=== PATIENT | female | born 1960 | race Caucasian/White ===

== ENCOUNTER 2016-07-14 14:20 | Emergency (ER) | payer MEDICARE ==
[~2016-07-14] VITALS: Ht 170.2 cm; Wt 86.2 kg
[~2016-07-14 14:20] MED LIST: CLON0.5T4 PO; LACO100T2 PO; LAMO150T PO; LOPE2CAP40 PO; METO50TA7 PO
[2016-07-14 15:05] LABS: *BILIRUBIN,URIN NEGATIVE (NEGATIVE); *BLOOD, URINE Trace-intact (NEGATIVE); *COLOR,URINE YELLOW (YELLOW); *KETONES,URINE NEGATIVE (NEGATIVE); *PROTEIN,URINE NEGATIVE (NEGATIVE); *UROBILINOGEN,URINE 0.2 E.U./dl (NORMAL); LEUKOCYTE ESTERASE ,URINE 1+ (NEGATIVE); NITRITE, URINE NEGATIVE (NEGATIVE); PH,URINE 7.5 (5.0-8.0); UGLUCOSE NEGATIVE (NEGATIVE)
--- NOTE | 2016-07-14 15:05 | NUR ---
Patient discharged to home in stable conditon. Written and verbal after care instructions given to patient. Patient verbalizes understanding of instructions.
[2016-07-14 15:09] LABS: *CLARITY,URINE SLIGHTLY CLOUDY (CLEAR)
[2016-07-14 15:10] LABS: BACTERIA,URINE FEW /HPF (NONE SEEN); RBC,URINE 0-3 /HPF (0-3); SQUAMOUS EPITHELIAL CELL,UR FEW /HPF (NONE SEEN); WBC,URINE 20-50 /HPF (0-3)
== END 2016-07-14 15:09 | disposition home or self-care (01) ==
LOC: ER 14:20
DX: N39.0 Urinary tract infection, site not specified (principal); I10 Essential (primary) hypertension; F41.9 Anxiety disorder, unspecified; F32.9 Major depressive disorder, single episode, unspecified; C64.1 Malignant neoplasm of right kidney, except renal pelvis
CPT/HCPCS: 87077; 87086; A4663

== ENCOUNTER 2016-07-23 15:26 | Emergency (ER) | payer MEDICARE ==
[~2016-07-23] VITALS: Ht 170.2 cm; Wt 86.2 kg
[2016-07-23 16:23] LABS: *BILIRUBIN,URIN NEGATIVE (NEGATIVE); *BLOOD, URINE NEGATIVE (NEGATIVE); *CLARITY,URINE CLEAR (CLEAR); *COLOR,URINE YELLOW (YELLOW); *KETONES,URINE NEGATIVE (NEGATIVE); *PROTEIN,URINE NEGATIVE (NEGATIVE); *UROBILINOGEN,URINE 0.2 E.U./dl (NORMAL); LEUKOCYTE ESTERASE ,URINE NEGATIVE (NEGATIVE); NITRITE, URINE NEGATIVE (NEGATIVE); PH,URINE 6.5 (5.0-8.0); UGLUCOSE NEGATIVE (NEGATIVE)
[2016-07-23 16:30] LABS: MUCUS,URINE FEW /LPF (0-FEW); SQUAMOUS EPITHELIAL CELL,UR FEW /HPF (NONE SEEN); WBC,URINE 0-3 /HPF (0-3)
--- NOTE | 2016-07-23 16:39 | NUR ---
mse completed, pt d/c'd home, aci/rx x2 given. pt ambulated w/o diff/took all belongings.
[2016-07-23 16:40] VITALS: BP 141/79
== END 2016-07-23 16:40 | disposition home or self-care (01) ==
LOC: ER 15:45
DX: N39.0 Urinary tract infection, site not specified (principal); I10 Essential (primary) hypertension; F32.9 Major depressive disorder, single episode, unspecified; F41.9 Anxiety disorder, unspecified; C64.1 Malignant neoplasm of right kidney, except renal pelvis
CPT/HCPCS: 87086; A4663

== ENCOUNTER 2017-04-06 15:09 | Emergency (ER) | payer MEDICARE ==
--- NOTE | 2017-04-06 15:30 | NUR ---
PT NOT IN WAITING ROOM WHEN CALLED FOR TRIAGE.
== END 2017-04-06 15:10 | disposition left against medical advice (07) ==
LOC: ER 15:10
DX: Z53.21 Procedure and treatment not carried out due to patient leaving prior to being seen by health care provider (principal)

== ENCOUNTER 2017-06-05 12:57 | Emergency (ER) | payer MEDICARE ==
[~2017-06-05] VITALS: Ht 170.2 cm; Wt 86.2 kg
[2017-06-05 13:37] LABS: *BILIRUBIN,URIN NEGATIVE (NEGATIVE); *BLOOD, URINE NEGATIVE (NEGATIVE); *CLARITY,URINE CLEAR (CLEAR); *COLOR,URINE YELLOW (YELLOW); *KETONES,URINE NEGATIVE (NEGATIVE); *PROTEIN,URINE NEGATIVE (NEGATIVE); *URINE HCG, QUAL NEGATIVE (NEGATIVE); *UROBILINOGEN,URINE 0.2 E.U./dl (NORMAL); LEUKOCYTE ESTERASE ,URINE NEGATIVE (NEGATIVE); NITRITE, URINE NEGATIVE (NEGATIVE); UGLUCOSE NEGATIVE (NEGATIVE)
[2017-06-05 13:45] LABS: BACTERIA,URINE NONE SEEN /HPF (NONE SEEN); RBC,URINE 0-3 /HPF (0-3); SQUAMOUS EPITHELIAL CELL,UR FEW /HPF (NONE SEEN); WBC,URINE 0-3 /HPF (0-3)
--- NOTE | 2017-06-05 14:01 | NUR ---
Patient discharged to home in stable conditon. Written and verbal after care instructions given. Patient verbalizes understanding of instructions.
== END 2017-06-05 14:02 | disposition home or self-care (01) ==
LOC: ER 13:00
DX: N39.0 Urinary tract infection, site not specified (principal); G40.909 Epilepsy, unspecified, not intractable, without status epilepticus; I10 Essential (primary) hypertension
CPT/HCPCS: 84703; 87086; A4663

== ENCOUNTER 2017-12-24 16:06 | Emergency (ER) | payer MEDICARE ==
[~2017-12-24] VITALS: Ht 170.2 cm; Wt 83.9 kg
[~2017-12-24 16:06] MED LIST changes: +CLON0.5T12 PO; -CLON0.5T4 PO
--- NOTE | 2017-12-24 16:38 | NUR ---
urine sent, pt awaiting for results.
[2017-12-24 16:41] LABS: *BILIRUBIN,URIN NEGATIVE (NEGATIVE); *BLOOD, URINE NEGATIVE (NEGATIVE); *CLARITY,URINE CLEAR (CLEAR); *COLOR,URINE YELLOW (YELLOW); *KETONES,URINE NEGATIVE (NEGATIVE); *PROTEIN,URINE NEGATIVE (NEGATIVE); *UROBILINOGEN,URINE 0.2 E.U./dl (NORMAL); LEUKOCYTE ESTERASE ,URINE TRACE (NEGATIVE); NITRITE, URINE NEGATIVE (NEGATIVE); UGLUCOSE NEGATIVE (NEGATIVE)
[2017-12-24 16:50] LABS: BACTERIA,URINE FEW /HPF (NONE SEEN); SQUAMOUS EPITHELIAL CELL,UR FEW /HPF (NONE SEEN)
[2017-12-24 17:04] VITALS: BP 122/85
--- NOTE | 2017-12-24 17:04 | NUR ---
Patient discharged to home in stable conditon. Written and verbal after care instructions given. Patient verbalizes understanding of instructions. Pt discharged with prescription for oral antibiotic. All belongings taken with pt at time of dc.
== END 2017-12-24 17:00 | disposition home or self-care (01) ==
LOC: ER 16:07
DX: N39.0 Urinary tract infection, site not specified (principal); I10 Essential (primary) hypertension
CPT/HCPCS: 81001; 87077; 87086; 87186; 99284; A4663

== ENCOUNTER 2018-01-15 17:42 | Emergency (ER) | payer MEDICARE ==
[~2018-01-15] VITALS: Ht 170.2 cm; Wt 83.9 kg
--- NOTE | 2018-01-15 18:20 | NUR ---
Pt is sitting in bed comfortably. No s/s of respiratory distress noted. All safety needs are met. Will continue to monitor.
[2018-01-15 18:31] LABS: *BILIRUBIN,URIN NEGATIVE (NEGATIVE); *BLOOD, URINE Trace-intact (NEGATIVE); *CLARITY,URINE CLEAR (CLEAR); *COLOR,URINE YELLOW (YELLOW); *KETONES,URINE NEGATIVE (NEGATIVE); *PROTEIN,URINE NEGATIVE (NEGATIVE); *UROBILINOGEN,URINE 0.2 E.U./dl (NORMAL); LEUKOCYTE ESTERASE ,URINE NEGATIVE (NEGATIVE); NITRITE, URINE NEGATIVE (NEGATIVE); UGLUCOSE NEGATIVE (NEGATIVE)
[2018-01-15 18:33] LABS: BACTERIA,URINE NONE SEEN /HPF (NONE SEEN); RBC,URINE 0-3 /HPF (0-3); SQUAMOUS EPITHELIAL CELL,UR FEW /HPF (NONE SEEN); WBC,URINE 0-3 /HPF (0-3)
[2018-01-15 18:58] VITALS: BP 108/65
== END 2018-01-15 18:15 | disposition home or self-care (01) ==
LOC: ER 17:47
DX: N39.0 Urinary tract infection, site not specified (principal); R19.7 Diarrhea, unspecified; I10 Essential (primary) hypertension
CPT/HCPCS: 87077; 87086; A4663

== ENCOUNTER 2018-06-03 16:12 | Emergency (ER) | payer MEDICARE ==
[~2018-06-03] VITALS: Ht 170.2 cm; Wt 83.9 kg
--- NOTE | 2018-06-03 16:41 | NUR ---
Patient discharged to home in stable conditon. Written and verbal after care instructions given to patient. Patient verbalizes understanding of instructions.
[2018-06-03 16:44] LABS: *BILIRUBIN,URIN NEGATIVE (NEGATIVE); *BLOOD, URINE Trace-intact (NEGATIVE); *COLOR,URINE YELLOW (YELLOW); *KETONES,URINE NEGATIVE (NEGATIVE); *UROBILINOGEN,URINE 0.2 E.U./dl (NORMAL); LEUKOCYTE ESTERASE ,URINE 1+ (NEGATIVE); NITRITE, URINE NEGATIVE (NEGATIVE); PH,URINE 6.5 (5.0-8.0); UGLUCOSE NEGATIVE (NEGATIVE)
[2018-06-03 16:49] LABS: *CLARITY,URINE SLIGHTLY HAZY (CLEAR)
[2018-06-03 16:51] LABS: BACTERIA,URINE FEW /HPF (NONE SEEN); MUCUS,URINE FEW /LPF (0-FEW); SQUAMOUS EPITHELIAL CELL,UR FEW /HPF (NONE SEEN); WBC,URINE 20-50 /HPF (0-3)
== END 2018-06-03 16:43 | disposition home or self-care (01) ==
LOC: ER 16:14
DX: N39.0 Urinary tract infection, site not specified (principal); I10 Essential (primary) hypertension; Z79.899 Other long term (current) drug therapy
CPT/HCPCS: 87077; 87086; A4663

== ENCOUNTER 2020-01-02 19:00 | Emergency (ER) | payer MEDICARE ==
[~2020-01-02] VITALS: Ht 170.2 cm; Wt 90.7 kg
[~2020-01-02 19:00] MED LIST changes: -CLON0.5T12 PO; +CLON0.5T4 PO; -LAMO150T PO; +LAMO150T6 PO
[2020-01-02 19:52] LABS: *BILIRUBIN,URIN NEGATIVE (NEGATIVE); *BLOOD, URINE 1+ (NEGATIVE); *CLARITY,URINE SLIGHTLY CLOUDY (CLEAR); *COLOR,URINE YELLOW (YELLOW); *KETONES,URINE NEGATIVE (NEGATIVE); *UROBILINOGEN,URINE 0.2 E.U./dl (NORMAL); LEUKOCYTE ESTERASE ,URINE 2+ (NEGATIVE); NITRITE, URINE NEGATIVE (NEGATIVE); UGLUCOSE NEGATIVE (NEGATIVE)
[2020-01-02 20:10] VITALS: BP 147/85
--- NOTE | 2020-01-02 20:10 | NUR ---
Patient discharged to home in stable condition. Written and verbal after care instructions given. Patient verbalizes understanding of instructions. Stressed follow up or return to ER for worsening s/s.
[2020-01-02 20:17] LABS: BACTERIA,URINE FEW /HPF (NONE SEEN); SQUAMOUS EPITHELIAL CELL,UR FEW /HPF (NONE SEEN)
== END 2020-01-02 20:11 | disposition home or self-care (01) ==
LOC: ER 19:00
DX: N39.0 Urinary tract infection, site not specified (principal); G40.909 Epilepsy, unspecified, not intractable, without status epilepticus; Z79.899 Other long term (current) drug therapy; K58.9 Irritable bowel syndrome, unspecified; I10 Essential (primary) hypertension; F32.9 Major depressive disorder, single episode, unspecified; F41.9 Anxiety disorder, unspecified; Z82.49 Family history of ischemic heart disease and other diseases of the circulatory system; Z85.528 Personal history of other malignant neoplasm of kidney
CPT/HCPCS: 87077; 87086; A4663

== ENCOUNTER 2023-07-12 15:10 | Emergency (ER) | payer MEDICARE ==
[~2023-07-12] VITALS: Ht 170.2 cm; Wt 90.7 kg
[2023-07-12 15:48] LABS: *BILIRUBIN,URIN NEGATIVE (NEGATIVE); *BLOOD, URINE 1+ (NEGATIVE); *CLARITY,URINE CLEAR (CLEAR); *COLOR,URINE YELLOW (YELLOW); *KETONES,URINE NEGATIVE (NEGATIVE); *PROTEIN,URINE NEGATIVE (NEGATIVE); *UROBILINOGEN,URINE 0.2 E.U./dl (NORMAL); LEUKOCYTE ESTERASE ,URINE 1+ (NEGATIVE); NITRITE, URINE NEGATIVE (NEGATIVE); UGLUCOSE NEGATIVE (NEGATIVE)
[2023-07-12 16:21] LABS: BACTERIA,URINE MODERATE /HPF (NONE SEEN); SQUAMOUS EPITHELIAL CELL,UR FEW /HPF (NONE SEEN); WBC,URINE 50-80 /HPF (0-3)
[2023-07-12] MEDS ORDERED: CEphaleXIN 500 MG CAPSULE ONE (16:50)
[2023-07-12] MEDS ORDERED: PHENAZOPYRIDINE HCL 100 MG TABLET ONE (16:50)
[2023-07-12] MEDS ORDERED: CIPR-263 PO (16:56)
[2023-07-12] MEDS ORDERED: CIPROFLOXACIN HCL 250 MG TABLET ONE (17:00)
[2023-07-12] MEDS: CIPROFLOXACIN HCL 250 MG TABLET PO ONE (17:03)
[2023-07-12] MEDS: PHENAZOPYRIDINE HCL 100 MG TABLET PO ONE (17:13)
[2023-07-12] MEDS: CEphaleXIN 500 MG CAPSULE PO ONE (17:14)
[2023-07-12 17:15] VITALS: BP 145/84; TEMP 98.5; O2SAT 100
== END 2023-07-12 17:16 | disposition home or self-care (01) ==
LOC: ER 15:19
DX: N39.0 Urinary tract infection, site not specified (principal); G40.909 Epilepsy, unspecified, not intractable, without status epilepticus; F32.A Depression, unspecified; F41.9 Anxiety disorder, unspecified; Z98.890 Other specified postprocedural states; Z79.899 Other long term (current) drug therapy; Z88.1 Allergy status to other antibiotic agents
CPT/HCPCS: A4606; A4663

== ENCOUNTER 2023-12-30 14:53 | Emergency (ER) | payer MEDICARE ==
[~2023-12-30] VITALS: Ht 170.2 cm; Wt 86.2 kg
[~2023-12-30 14:53] MED LIST changes: +CIPR-263 PO
[2023-12-30 14:56] VITALS: O2SAT 100
== END 2023-12-30 15:33 | disposition left against medical advice (07) ==
LOC: ER 14:53
DX: R22.40 Localized swelling, mass and lump, unspecified lower limb (principal); Z53.21 Procedure and treatment not carried out due to patient leaving prior to being seen by health care provider
CPT/HCPCS: A4606; A4663

== ENCOUNTER 2024-03-01 11:59 | Emergency (ER) | payer MEDICARE ==
[~2024-03-01] VITALS: Ht 170.2 cm; Wt 86.2 kg
[2024-03-01 13:57] LABS: BASOPHILS # (AUTO) 0.1 K/UL (0.0-0.2); BASOPHILS % (AUTO) 1.3 % (0.0-2.0); EOSINOPHILS # (AUTO) 0.2 K/uL (0.0-0.7); EOSINOPHILS % (AUTO) 3.5 % (0.0-7.0); HEMATOCRIT 40.2 % (31.2-41.9); HEMOGLOBIN 13.3 g/dL (10.9-14.3); LYMPHOCYTES # (AUTO) 2.4 K/uL (0.8-4.8); LYMPHOCYTES % (AUTO) 37.9 % (20.5-51.5); MEAN CORPUSCULAR HEMOGLOBIN 28.8 uug (24.7-32.8); MEAN CORPUSCULAR HGB CONC 33 g/dL (32.3-35.6); MEAN CORPUSCULAR VOLUME 87.2 fL (75.5-95.3); MONOCYTES # (AUTO) 0.4 K/uL (0.1-1.30); MONOCYTES % (AUTO) 6.2 % (0.0-11.0); NEUTROPHILS # (AUTO) 3.3 K/uL (1.8-8.9); NEUTROPHILS % (AUTO) 51.1 % (38.5-71.5); PLATELET COUNT (AUTO) 275 K/uL (179-408); RED BLOOD CELL COUNT(AUTO) 4.61 MIL/uL (3.63-4.92); WHITE BLOOD COUNT (AUTO) 6.4 K/uL (3.8-11.8)
[2024-03-01 14:04] LABS: DIFFERENTIAL COMMENT 1
[2024-03-01 14:09] LABS: CALCIUM 9.2 mg/dL (8.5-10.1); CREATININE 0.7 mg/dL (0.6-1.3); POTASSIUM 4.2 mmol/L (3.5-5.1)
[2024-03-01] MEDS ORDERED: SULF1TAB48 PO (14:36)
[2024-03-01 14:42] VITALS: BP 149/81; TEMP 97.5; O2SAT 99
== END 2024-03-01 14:42 | disposition home or self-care (01) ==
LOC: ER 11:59
DX: L97.919 Non-pressure chronic ulcer of unspecified part of right lower leg with unspecified severity (principal); G40.909 Epilepsy, unspecified, not intractable, without status epilepticus; K58.9 Irritable bowel syndrome, unspecified; F32.A Depression, unspecified; F41.9 Anxiety disorder, unspecified; Z85.528 Personal history of other malignant neoplasm of kidney; Z98.890 Other specified postprocedural states; Z79.899 Other long term (current) drug therapy
CPT/HCPCS: 36415; 83605; 85025; 86140; A4606; A4663